=== PATIENT | male | born 1960 | race Caucasian/White ===

== ENCOUNTER 2022-05-25 09:26 | Outpatient (CLI) | payer BC, SELFPAY ==
--- OUTSIDE RECORDS SUMMARY | 2022-05-25 09:29 | XMS_ITS | Clinical Summary ---
:1960 Author Organization [facility] [place] [address] Care Team Providers Name Role Phone Clinic, No Pcp Or Primary Care Provider Unavailable Allergies Not on File Medications Not on file Active Problems Not on file Social History Tobacco Use Types Packs/Day Years Used Date Never Assessed Sex Assigned at Date Recorded Not on file Plan of Treatment Not on file Results Not on filefrom Last 3 Months Care Teams Control Panel Assembler Relationship Specialty Start Date End Date Clinic, No Pcp Or PCP - General 08/25/17 .
[2022-05-25 14:08] LABS: Chloride* 103 mmol/L (96-114); Potassium* 5.1 mmol/L (3.6-5.1); Sodium* 139 mmol/L (135-149)
[2022-05-25 14:11] LABS: Blood Urea Nitrogen* 22 mg/dL (7-30); Carbon Dioxide* 25 mmol/L (20-32); Creatinine* 1.2 mg/dL (0.5-1.5); Estimated Glomerular Filt Rate 68 ml/min
[2022-05-25 14:12] LABS: Calcium* 9.8 mg/dL (8.4-10.6); Glucose* 153 mg/dL (60-115)
== END 2022-05-25 09:27 | disposition home or self-care (01) ==
LOC: LONREF 09:28
PROVIDERS: PCP Family Medicine; Visit Provider Family Medicine
DX: Z01.818 Encounter for other preprocedural examination (principal)
CPT/HCPCS: 80048

== ENCOUNTER 2022-09-09 08:00 | Outpatient (CLI) | payer BC, SELFPAY | END 2022-09-09 08:01 | disposition home or self-care (01) | LOC: NFLDREF 09-10 01:56 | PROVIDERS: PCP Family Medicine; Referring Provider Family Medicine; Visit Provider Family Medicine | DX: E78.5 Hyperlipidemia, unspecified (principal); E13.9 Other specified diabetes mellitus without complications; Z12.5 Encounter for screening for malignant neoplasm of prostate | CPT/HCPCS: 80061; 84153 ==

== ENCOUNTER 2023-06-22 09:23 | Outpatient (CLI) | payer BC, SELFPAY | END 2023-06-22 09:24 | disposition home or self-care (01) | PROVIDERS: PCP Family Medicine; Visit Provider Family Medicine | DX: E13.9 Other specified diabetes mellitus without complications (principal); I10 Essential (primary) hypertension; E78.5 Hyperlipidemia, unspecified | CPT/HCPCS: 80048; 80061; 84681 ==

== ENCOUNTER 2024-01-03 08:51 | Outpatient (CLI) | payer MEDICARE, SELFPAY ==
--- OUTSIDE RECORDS SUMMARY | 2024-01-03 08:56 | XMS_ITS | Clinical Summary ---
Author Organization [facility] Address [address] [facility] [place] [address] Care Team Providers Care Fiscal Technician Name Role Phone Yfn Saunders MD Primary Care Provider [phone] Allergies No known active allergies Medications Medication Sig Dispensed Refills Start Date End Date Status omeprazole (PRILOSEC) [address] capsule Take 40 mg by mouth daily Active metFORMIN (GLUCOPHAGE) 1000 MG tablet Take 1,000 mg by mouth 2 times daily (with meals) Active glipiZIDE (GLUCOTROL) 10 MG tablet Take 10 mg by mouth 2 times daily (before meals) Active allopurinol (ZYLOPRIM) 300 MG tablet Take 300 mg by mouth daily Active simvastatin (ZOCOR) 40 MG tablet Take 40 mg by mouth At Bedtime Active lisinopril (ZESTRIL) 10 MG tablet Take 10 mg by mouth daily Active amLODIPine (NORVASC) 10 MG tablet Take 10 mg by mouth daily Active Social History Tobacco Use Types Packs/Day Years Used Date Smoking Tobacco: Never Smokeless Tobacco: Never Tobacco Cessation:Counseling Given: Not Answered Alcohol Use Standard Drinks/Week Comments Not Currently 0 (1 standard drink = 0.6 oz pur e alcohol) Adolescent Education Answer Date Record ed Getting School Help Needed Not on file 03/19 Sex and Gender Information Value Date Recorded Sex Assigned at Not on file Gender Identity Not on file Sexual Orientation Not on file Last Filed Vital Signs Vital Sign Reading Time Taken Comments Blood Pressure 130/70 06/02/2022 8:[address] COUNSELLOR Pulse 70 06/02/2022 8:[address] COUNSELLOR Temperature 36.7 ??C (98 ??F) 06/02/2022 8:[address] COUNSELLOR Respiratory Rate 12 06/02/2022 8:[address] COUNSELLOR Oxygen Saturation 98% 06/02/2022 8:[address] COUNSELLOR Inhaled Oxygen Concentration - - Weight 104.3 kg (230 lb) 06/02/2022 6:[address] COUNSELLOR Height 188 cm (6' 2) 06/02/2022 6:[address] COUNSELLOR Body Mass Index 29.53 06/02/2022 6:[address] COUNSELLOR Plan of Treatment Health Maintenance Due Date Last Done Comments ADVANCE CARE PLANNING 1960 ANNUAL REVIEW OF HM ORDERS 1960 CT COLONOGRAPHY 1960 FIT 1960 FLEX SIG 1960 LIPID 1960 sDNA (Cologuard) 1960 HIV SCREENING 1973 HEPATITIS C SCREENING 1976 RSV VACCINE ( & 60+) (1 - 1-dose 60+ series) 2018 ZOSTER IMMUNIZATION (2 of 2) 10/10/2019 08/15/2019 COVID-19 Vaccine ( - season) 2023 06/08/2021, 10/10/2020, 09/12/2020 PHQ-2 (once per calendar year) 2023 FALL RISK ASSESSMENT 12/12/2023 MEDICARE ANNUAL WELLNESS VISIT 12/12/2023 08/13/2013, 07/26/2012, 07/12/2011, Additional history exists Pneumococcal Vaccine: 65+ Years (3 of 3 - PPSV23 or PCV20) 12/12/2023 12/06/2017, 03/03/2017, 07/26/2012 INFLUENZA VACCINE (#1) 2024 2, 07/08/2021, 07/08/2021, Additional history exists DTAP/TDAP/TD IMMUNIZATION (2 - Td or Tdap) 07/08/2024 07/08/2014 GLUCOSE 06/02/2025 06/02/2022 COLONOSCOPY 02/13/2028 06/02/2022, 06/02/2022 COLORECTAL CANCER SCREENING 02/13/2028 HPV IMMUNIZATION Aged Out No longer e ligible based on patient's age to complete this topic IPV IMMUNIZATION Aged Out No longer e ligible based on patient's age to complete this topic MENINGITIS IMMUNIZATION Aged Out No l onger eligible based on patient's age to complete this topic RSV MONOCLONAL ANTIBODY Aged Out No l onger eligible based on patient's age to complete this topic Procedures Procedure Name Priority Date/Time Associated Diagnosis Comments COLONOSCOPY Routine 06/02/2022 7:[address] COUNSELLOR GLUCOSE BY METER Routine 06/02/2022 6:[address] COUNSELLOR from Last 3 Months or Most Recently Relevant to Health Maintenance Results * COLONOSCOPY (06/02/2022 7:[address] COUNSELLOR) COLONOSCOPY [facility] [address] ??[place] [address] Patient Name: Antwon Lewis ? Procedure Date: 06/02/2022 7:59 AM ? Date of : 1960 ?Admit Type: Outpatient Age: 61 ? Room: [place] [address] Note Status: Finalized ?Attending MD: JUAN PABLO GUTIERREZ MD Total Sedation Time: ?Instrument Name: Adult Colonoscope 630 Procedure: ? Colonoscopy Indications: ? Chronic diarrhea Providers: ? JUAN PABLO GUTIERREZ MD Referring MD: ? Medicines: ? Monitored Anesthesia Care Complications: ? No immediate complications. Estimated blood loss: ? Minimal. Procedure: ? Pre-Anesthesia Assessment: ? - Prior to the procedure, a History and Physical was ? performed, and patient medications, allergies and ? sensitivities were reviewed. The patient's tolerance ? of previous anesthesia was reviewed. ? - The risks and benefits of the procedure and the ? sedation options and risks were discussed with the ? patient. All questions were answered and informed ? consent was obtained. ? After obtaining informed consent, the colonoscope was ? passed under direct vision. Throughout the procedure, ? the patient's blood pressure, pulse, and oxygen ? saturations were monitored continuously. The ? colonoscope was introduced through the anus and ? advanced to the terminal ileum, with identification of ? the appendiceal orifice and IC valve. The colonoscopy ? was performed without difficulty. The patient ? tolerated the procedure well. The quality of the bowel ? preparation was excellent. ? Findings: ? The perianal and digital rectal examinations were normal. ? The terminal ileum appeared normal. ? The entire examined colon appeared normal on direct and retroflexion ? views. Random colon biopsies taken to rule out microscopic colitis. ? Moderate Sedation: ? . Impression: ?- The examined portion of the ileum was normal. ? - The entire examined colon is normal on direct and ? retroflexion views. Biopsies as above. Recommendation: ?- Discharge patient to home. ? - Resume diet. ? - Await path results. ? - Continue PPI. ? - Avoid NSAIDs. ? - Follow up in clinic as scheduled. ? Juan Pablo Gutierrez MD JUAN PABLO GUTIERREZ MD 06/02/2022 8:27:53 AM I was physically present for the entire viewing portion of the exam. Signature of teaching physician [id number] GUTIERREZ MD Number of Addenda: 0 Note Initiated On: 06/02/2022 7:59 AM Scope In: 8:01:01 AM Scope Out: 8:14:23 AM RADIOLOGY RESULTS 06/02/2022 7:[address] COUNSELLOR Juan Pablo Gutierrez MD PROCEDURES RADIOLOGY RESULTS * (ABNORMAL) Glucose by meter (06/02/2022 6:[address] COUNSELLOR) GLUCOSE BY METER POCT 134(H) 70 - 99 mg/dL 06/02/2022 6:[address] COUNSELLOR [facility] POCT RESULTS Blood, venous BLOOD SPECIMEN / Unknown 06/02/2022 6:[address] COUNSELLOR 06/02/2022 6:[address] COUNSELLOR Juan Pablo Gutierrez MD LAB - BEAKER POCT Performing Organization Address City/[facility]/ZIP Co de Phone Number [facility] POCT RESULTS [address] [place] [address] from Last 3 Months or Most Recently Relevant to Health Maintenance Care Teams Fiscal Technician Relationship Specialty Start Date End Date Yfn Saunders MD PCP - General Family Medicine 05/25/22
--- OUTSIDE RECORDS SUMMARY | 2024-01-03 08:56 | XMS_ITS | Clinical Summary ---
Author Organization [facility] Address [place], [place] [address] Care Team Providers Care Triple Air Valve Tester Name Role Phone Clinic, No Pcp Or Primary Care Provider Unavaila ble Social History Tobacco Use Types Packs/Day Years Used Date Smoking Tobacco: Never Assessed Sex and Gender Information Value Date Recorded Sex Assigned at Not on file Gender Identity Not on file Sexual Orientation Not on file Plan of Treatment Not on file Care Teams Triple Air Valve Tester Relationship Specialty Start Date End Date Clinic, No Pcp Or . PCP - General 08/25/17
--- OUTSIDE RECORDS SUMMARY | 2024-01-03 08:56 | XMS_ITS | Referral Summary ---
Author Organization [facility] Address [address] [facility] [place] [address] Care Team Providers Care Push Button Switch Assembler Name Role Phone Yfn Saunders MD Primary Care Provider Allergies No known active allergies Medications Medication [...] Comments Blood Pressure 130/70 06/02/2022 8:[address] [place] Pulse 70 06/02/2022 8:[address] [place] Temperature 36.7 ??C (98 ??F) 06/02/2022 8:[address] [place]IAISON Respiratory Rate 12 06/02/2022 8:[address] [place] Oxygen Saturation 98% 06/02/2022 8:[address] [place] Inhaled Oxygen Concentration - - Weight 104.3 kg (230 lb) 06/02/2022 6:[address] [place] Height 188 cm (6' 2) 06/02/2022 6:[address] [place] Body Mass Index 29.53 06/02/2022 6:[address] [place] Plan of Treatment Not on file Procedures Procedure Name Priority Date/Time Associated Diagnosis Comments COLONOSCOPY Routine 06/02/2022 7:[address] [place] GLUCOSE BY METER Routine 06/02/2022 6:[address] LIAISON from Last 3 Months or Most Recently Relevant to Health Maintenance Results * COLONOSCOPY (06/02/2022 7:[address] [place]IA[place]) [facility] Signature COLONOSCOPY [facility] [address] ??[place], [place] [address] Patient Name: Antwon Lewis ? Procedure Date: 06/02/2022 7:59 AM ? Date of : 1960 ?Admit Type: Outpatient Age: 61 ? Room: [place] [address] Note Status: Finalized ?Attending MD: JUAN PABLO GUTIERREZ MD Total Sedation Time: ?Instrument Name: Adult Colonoscope 630 Procedure: ? Colonoscopy Indications: ? Chronic diarrhea Providers: ? JUAN PABLO GUTIERREZ MD Referring : ? Medicines: ? Monitored Anesthesia Care Complications: [...] of the exam. Signature of teaching physician [id number] GUTIERREZ MD Number of Addenda: 0 Note Initiated On: 06/02/2022 7:59 AM Scope In: 8:01:01 AM Scope Out: 8:14:23 AM RADIOLOGY RESULTS 06/02/2022 7:[address] [place] Juan Pablo Gutierrez MD PROCEDURES RADIOLOGY RESULTS * (ABNORMAL) Glucose by meter (06/02/2022 6:[address] LIAISON) GLUCOSE BY METER POCT 134(H) 70 - 99 mg/dL 06/02/2022 6:[address] [place] [facility] POCT RESULTS Blood, venous BLOOD SPECIMEN / Unknown 06/02/2022 6:[address] [place] 06/02/2022 6:[address] [place] Juan Pablo Gutierrez MD LAB - BEAKER POCT Performing Organization Address City/[facility]/ZIP Co de Phone Number [facility] POCT RESULTS [address] [place] [address] from Last 3 Months or Most Recently Relevant to Health Maintenance Care Teams Push Button Switch Assembler Relationship Specialty Start Date End Date Yfn Saunders MD PCP - General Family Medicine 05/25/22
== END 2024-01-03 08:52 | disposition home or self-care (01) ==
PROVIDERS: PCP Family Medicine; Visit Provider Family Medicine
DX: E66.9 Obesity, unspecified (principal); Z68.32 Body mass index [BMI] 32.0-32.9, adult; E13.9 Other specified diabetes mellitus without complications; I10 Essential (primary) hypertension; E78.2 Mixed hyperlipidemia
CPT/HCPCS: 84443

== ENCOUNTER 2024-07-11 08:55 | Outpatient (CLI) | payer MEDICARE, SELFPAY | END 2024-07-11 08:56 | disposition home or self-care (01) | PROVIDERS: PCP Family Medicine; Visit Provider Family Medicine | DX: E78.2 Mixed hyperlipidemia (principal); I10 Essential (primary) hypertension; Z12.5 Encounter for screening for malignant neoplasm of prostate | CPT/HCPCS: 80048; 80061; G0103 ==

== ENCOUNTER 2025-01-09 09:04 | Outpatient (CLI) | payer MEDICARE, SELFPAY | END 2025-01-09 09:05 | disposition home or self-care (01) | PROVIDERS: PCP Family Medicine; Visit Provider Family Medicine | DX: I10 Essential (primary) hypertension (principal); Z79.899 Other long term (current) drug therapy | CPT/HCPCS: 80048; 82607 ==

== ENCOUNTER 2025-06-11 11:32 | Outpatient (CLI) | payer MEDICARE, SELFPAY | END 2025-06-11 11:33 | disposition home or self-care (01) | LOC: LKVREF 11:34 | PROVIDERS: PCP Family Medicine; Visit Provider Family Medicine | DX: E13.9 Other specified diabetes mellitus without complications (principal) | CPT/HCPCS: 80048 ==